=== PATIENT | female | born 1940 | race Two or more races ===

== ENCOUNTER 2024-05-04 09:14 | Outpatient (CLI) | payer OTHER | END 2024-05-04 09:19 | disposition home or self-care (01) | LOC: RAD 09:14 | PROVIDERS: ATTEND Orthopaedic Surgery | DX: M54.6 Pain in thoracic spine (principal) ==

== ENCOUNTER 2024-05-10 12:31 | Outpatient (CLI) | payer OTHER | END 2024-05-10 12:49 | disposition home or self-care (01) | LOC: RAD 12:31 | PROVIDERS: ATTEND Orthopaedic Surgery | DX: M54.50 Low back pain, unspecified (principal) ==

== ENCOUNTER 2024-05-11 12:25 | Outpatient (CLI) | payer OTHER | END 2024-05-11 12:28 | disposition home or self-care (01) | LOC: NUCLEAR 12:25 | PROVIDERS: ATTEND Orthopaedic Surgery | DX: M81.0 Age-related osteoporosis without current pathological fracture (principal) ==

== ENCOUNTER 2024-06-03 12:20 | Outpatient (CLI) | payer OTHER | END 2024-06-03 12:26 | disposition home or self-care (01) | LOC: RAD 12:20 | PROVIDERS: ATTEND Orthopaedic Surgery | DX: M79.644 Pain in right finger(s) (principal) ==

== ENCOUNTER 2024-08-02 10:36 | Outpatient (CLI) | payer OTHER | END 2024-08-02 10:37 | disposition home or self-care (01) | LOC: LAB 10:36 | PROVIDERS: ATTEND Orthopaedic Surgery | DX: E55.9 Vitamin D deficiency, unspecified (principal); M85.9 Disorder of bone density and structure, unspecified; E56.1 Deficiency of vitamin K ==